=== PATIENT | female | born 1960 | race Caucasian/White ===

== ENCOUNTER 2016-05-05 05:16 | Day surgery (SDC) | payer BC ==
[2016-05-05] VITALS (8 sets, daily range): BP systolic 121–152; BP diastolic 75–98
[~2016-05-05 05:16] MED LIST: DELZICOL400 MG PO; LEVOFLOXACIN500 MG PO; METRONIDAZOLE500 MG PO; NEXIUM20 M1 PO; PREDNISONE20 MG PO; PRILOSEC10 MG PO; XANAX0.5 MG PO; ZANTAC 150 MAX150 MG PO
--- NOTE | 2016-05-05 10:50 | OPERATIVE REPORT ---
DATE OF SURGERY: 05/05/2016 SURGEON: Candelario Reynolds MD [employer] ASSOCIATE: Sabas Nicole III, MD PREOPERATIVE DIAGNOSIS: 1. Gastroesophageal reflux disease POSTOPERATIVE DIAGNOSIS: 1. Gastroesophageal reflux disease PROCEDURE PERFORMED: 1. Laparoscopic Aaron fundoplication ANESTHESIA: General. INDICATIONS: The patient is a 55-year-old woman with longstanding reflux, including laryngeal injury. SURGICAL TECHNIQUE: The patient was taken to the operating room, where a general anesthetic was administered and the patient positioned in low lithotomy position. After sterile prep and drape, an orogastric tube, Perry catheter and IV antibiotics were on board. Sequential compression devices were used throughout the case. A local anesthetic of 0.5% Marcaine with epinephrine was infiltrated. A transverse incision was made above the umbilicus and an old scar from an abdominoplasty. A Veress needle was used to insufflate and a 10 mm cannula was passed. Good visualization was obtained, and there were no significant adhesions in the upper abdomen. The liver retractor was inserted through a separate puncture in the upper abdomen and used to hold up the left lobe of the liver. Three additional trocars were placed in the usual location. The avascular hepatogastric ligament was taken down using the Thunderbeat device, which was used to carry out the majority of the dissection. The crura were both identified and fully dissected, and the esophagus was loosened up, with care taken to avoid injury to the vagus nerve. The short gastric vessels were taken down to a sufficient degree to allow tension-free passage of a fundic wrap behind the esophagus. Two sutures were placed in the crura to narrow the hiatus slightly, but leaving sufficient space behind the esophagus to prevent long-term dysphagia. Suturing was done with a 2-0 Surgidac and the EndoStitch device with external knot-pushing technique. The fundic wrap was passed behind the esophagus and brought up to the anteromedial portion of the esophagus where it sat in a tension-free fashion. A single suture was taken posteriorly, from the fundic wrap to the right valentino, following which a 2 stitch short floppy Aaron was done in the anteromedial position, incorporating small bites of the esophagus to prevent slippage. Once in place, Hemostasis was found to be complete. A small amount of additional Marcaine was instilled, gas was evacuated, and the skin sites closed with interrupted subcuticular 4-0 Vicryl suture and Steri-Strips. Dressings were applied, and the patient left in stable condition. No intraoperative complications were encountered.
[2016-05-06 02:43] VITALS: BP 140/80
[2016-05-06 06:50] VITALS: BP 128/83
[2016-05-06] MEDS ORDERED: LORTAB 10-300 M1 ELX PO (07:53)
--- NOTE | 2016-05-06 07:53 | Provider's Discharge Care Plan ---
Problem, Goal, Plan Problem List 1. Status post laparoscopic Aaron fundoplication
--- NOTE | 2016-05-06 07:53 | Provider's Discharge Care Plan ---
Problem, Goal, Plan Problem List 1. Status post laparoscopic Aaron fundoplication
== END 2016-05-06 09:15 | disposition home or self-care (01) ==
LOC: SDC SRH 05:16 → SCU SRH 06:09 → ACUTE2 SRH 11:24
PROVIDERS: Surgery
PROC: 0DV44ZZ Restriction of Esophagogastric Junction, Percutaneous Endoscopic Approach (ICD-10-PCS; principal; 2016-05-05 07:30)
DX: K21.9 Gastro-esophageal reflux disease without esophagitis (principal); I10 Essential (primary) hypertension; Z72.0 Tobacco use

== ENCOUNTER 2016-05-28 09:28 | Outpatient (CLI) | payer BC, OTHER ==
[~2016-05-28 09:28] MED LIST changes: +LORTAB 10-300 M1 ELX PO
== END 2016-05-28 23:00 ==
LOC: LAB SRH 09:28
DX: R19.7 Diarrhea, unspecified (principal)
CPT/HCPCS: 90112